=== PATIENT | male | born 1995 | race Two or more races ===

== ENCOUNTER 2022-09-09 09:06 | Emergency (ER) | payer SELFPAY ==
[~2022-09-09] VITALS: Ht 188 cm; Wt 104.8 kg
--- NOTE | 2022-09-09 09:24 | NUR ---
[facility] UNIT [id number]
[2022-09-09] MEDS ORDERED: LORAZEPAM 1 MG TABLET ONE (09:30)
[2022-09-09] MEDS ORDERED: LORAZEPAM 1 MG TABLET PO ONE (09:30)
--- NOTE | 2022-09-09 09:42 | NUR ---
GAMEPLAY PROGRAMMER : ROSS INGRAM "FATHER" [phone]
--- NOTE | 2022-09-09 10:36 | NUR ---
PT WALKED TO WAITING ROOM UPON DISCHARGE. AAOX4. STEADY GAIT.
--- NOTE | 2022-09-09 10:38 | NUR ---
Patient discharged to home in stable condition. Written and verbal after care instructions given. Patient verbalizes understanding of instruction. Family in the waiting room to pickup pt.
[2022-09-09 10:39] VITALS: BP 132/67
== END 2022-09-09 10:39 | disposition home or self-care (01) ==
LOC: ER 09:10
DX: F15.10 Other stimulant abuse, uncomplicated (principal)